=== PATIENT | female | born 1985 | race Two or more races ===

== ENCOUNTER 2017-03-24 17:17 | Emergency (ER) | payer OTHER ==
[~2017-03-24] VITALS: Ht 170.2 cm; Wt 66.8 kg
[2017-03-24] MEDS ORDERED: ZOMI5TAB2 (17:30)
[2017-03-24] MEDS ORDERED: MELA3TAB (17:30)
[2017-03-24] MEDS ORDERED: VITA100T98 (17:30)
[2017-03-24] MEDS ORDERED: FISH1000 (17:30)
[2017-03-24] MEDS ORDERED: D 50CAP (17:30)
[2017-03-24 21:27] VITALS: BP 144/95
== END 2017-03-24 21:28 | disposition home or self-care (01) ==
LOC: M ED 19:11
DX: F41.1 Generalized anxiety disorder (principal); G43.909 Migraine, unspecified, not intractable, without status migrainosus; Z79.899 Other long term (current) drug therapy; Z91.040 Latex allergy status; Z91.011 Allergy to milk products

== ENCOUNTER → 2017-04-14 | Outpatient (CLI) | payer OTHER ==
[~2017-04-14] MED LIST: ATIV1TAB10 PO; D 50CAP; DULO30CA PO; FISH1000; FLON1SPR; IBUP1TAB6 PO; MELA3CAP2 PO; MELA3TAB; METHACHOLINE KIT (J7674) INH ONE; NICO2GUM62 PO; VITA100T98; ZOMI5TAB2; ZOMI5TAB2 PO
--- NOTE | 2017-04-14 11:10 | PFTRPT ---
Tech: Paxton KINCAID RRT Age: 31 Sex: Female Race: <Unspecified> Height: 67.00 Inches Weight: 150.00 Lbs BSA: 1.79 Diagnosis: R05 METHACHOLINE CHALLENGE REPORT: ORDERING PROVIDER: KAT Bliss DATE OF SERVICE: 04/14/17 INTERPRETATION: The study was of excellent technical quality. Under protocol, methacholine was administered. At a dose of 0.25 mg (1.375 CDUs), a 24% decline in the FEV1 was noted. The PC20 of 0.05 is significant. Flow rates returned to baseline post bronchodilator administration. IMPRESSION: Positive methacholine challenge study. MTDD
== END ==
LOC: M CARPUL 10:07
PROVIDERS: ATTEND Nurse Practitioner Adult Health
DX: R05 Cough (principal)

== ENCOUNTER 2017-04-23 13:09 | Inpatient (IN) | payer OTHER ==
[~2017-04-23] VITALS: Ht 170.2 cm; Wt 66.6 kg
[~2017-04-23 13:09] MED LIST changes: -ATIV1TAB10 PO; -DULO30CA PO; -FLON1SPR; -IBUP1TAB6 PO; -MELA3CAP2 PO; -METHACHOLINE KIT (J7674) INH ONE; -NICO2GUM62 PO; -ZOMI5TAB2 PO
[2017-04-23 14:21] LABS: MEAN CORPUSCULAR HEMOGLOBIN 30.2 pg (27.0-33.0); MEAN CORPUSCULAR HGB CONC 33.7 g/dl (32.0-36.5); MEAN CORPUSCULAR VOLUME 89.5 fl (80.0-96.0); RED CELL DISTRIBUTION WIDTH 12.4 % (11.5-14.5); WHITE BLOOD COUNT 6.9 K/mm3 (4.0-10.0)
[2017-04-23 14:41] LABS: CONTROL LINE HCG INT CTR LINE PRESENT
[2017-04-23 14:49] LABS: METHADONE URINE NEGATIVE (NEGATIVE)
[2017-04-23 14:57] LABS: ALBUMIN 4.3 GM/DL (3.2-5.2); ALKALINE PHOSPHATASE 60 U/L (45-117); ALT/SGPT 23 U/L (12-78); ANION GAP 7 MEQ/L (8-16); AST/SGOT 22 U/L (15-37); BILIRUBIN,DIRECT 0.1 MG/DL (0.0-0.2); BILIRUBIN,TOTAL 0.5 MG/DL (0.2-1.0); BLOOD UREA NITROGEN 7 MG/DL (7-18); CALCIUM LEVEL 9.1 MG/DL (8.5-10.1); CARBON DIOXIDE LEVEL 26 MEQ/L (21-32); CHLORIDE LEVEL 105 MEQ/L (98-107); CREATININE FOR GFR 0.62 MG/DL (0.55-1.02); GLOMERULAR FILTRATION RATE > 60.0 (>60); GLUCOSE, FASTING 85 MG/DL (70-105); POTASSIUM SERUM 4.5 MEQ/L (3.5-5.1); SODIUM LEVEL 138 MEQ/L (136-145); TOTAL PROTEIN 7.6 GM/DL (6.4-8.2)
[2017-04-23] MEDS ORDERED: IBUPROFEN 600 MG TAB PO ONE (15:45)
[2017-04-23] MEDS ORDERED: MOM 30ML SUSPENSION UDC PO PRN (16:30)
[2017-04-23] MEDS ORDERED: ACETAMINOPHEN TAB 650MG DOSE (2X325MG) PO PRN (16:30)
[2017-04-23] MEDS ORDERED: MAALOX 30 ML SUSP *UDC PO PRN (16:30)
[2017-04-23] MEDS ORDERED: HALOPERIDOL 5 MG TAB PO PRN (16:30)
[2017-04-23] MEDS ORDERED: traZODone 50 MG TAB PO PRN (16:30)
[2017-04-23] MEDS ORDERED: MELA3CAP2 PO (16:37)
[2017-04-23] MEDS ORDERED: IBUP1TAB6 PO (16:37)
[2017-04-23] MEDS ORDERED: ZOMI5TAB2 PO (16:37)
[2017-04-23] MEDS ORDERED: FLON1SPR (16:37)
[2017-04-23 18:57] VITALS: BP 150/104
[2017-04-23 19:28] VITALS: BP 137/97
[2017-04-23] MEDS: risperiDONE 1 MG TAB PO SCH (19:48)
[2017-04-23] MEDS: LORazepam 1 MG TAB PO PRN (19:49)
[2017-04-24 06:33] VITALS: BP 135/98
[2017-04-24] MEDS: risperiDONE 1 MG TAB PO SCH ×3 (09:00→21:00)
[2017-04-24] MEDS: LORazepam 1 MG TAB PO PRN (10:23)
[2017-04-24] MEDS: IBUPROFEN 600 MG TAB PO PRN (11:48)
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
[2017-04-24 18:00] VITALS: BP 115/72
--- NOTE | 2017-04-25 01:15 | HPE ---
DATE OF ADMISSION: 04/23/2017 HISTORY OF PRESENT ILLNESS: Please refer to psychiatric history and evaluation for further details on this admission. This examination and history is performed for medical issues, which may need treatment, followup or consult on this 31-year-old female. ALLERGIES: LACTOSE and LATEX. PRIMARY CARE PROVIDER: Francois Kaiser. SOCIAL HISTORY: She is single. She is a soldier currently stationed at [employer]. Ethyl alcohol (EtOH) once or twice a month. Smokes 1-4 cigarettes per day. Recreational drug use none. PAST MEDICAL HISTORY: 1. Asthma. 2. Traumatic brain injury (TBI). 3. Concussion times two. 4. Chronic right hip pain for which she will continue seeing physical therapy (PT) as outpatient. PAST SURGICAL HISTORY: Hernia repair. HOME MEDICATIONS: - Flonase one spray each morning - ibuprofen 600 mg by mouth every 6 hours as needed for pain - Zomig ZMT 5 mg by mouth as needed for migraine - melatonin 3 mg by mouth nightly as needed for sleep - vitamin B12 one by mouth daily REVIEW OF SYSTEMS: Has a history of headaches, none currently. No fever. No chills. No blurred or double vision. No tinnitus. No hoarseness. No difficulty swallowing. No lightheadedness. No vertigo. Breasts: No masses. Cardiovascular: No complaints of chest pain, shortness of breath, palpitations or edema. Respiratory: No chronic cough, no sputum production. No hemoptysis. No orthopnea. No wheeze. Gastrointestinal (GI): No nausea, vomiting or diarrhea. No hematochezia. No melena. No complaints of abdominal pain. Genitourinary (): No hematuria, dysuria or frequency. Musculoskeletal: No joint redness or swelling. Endocrine: No polyuria, polydipsia or polyphagia. Hematological: No history of anemia. Neurological: No history of seizures. Psychological: See psychiatric history of present illness (HPI). PHYSICAL EXAMINATION: 31-year-old cooperative female in no acute distress. Vital signs are stable. Height 61 inches, weight 67 kg, body mass index (BMI) 23.1. Blood pressure 135/88, pulse 93, respirations 18, temperature 98.4. Patient is alert and oriented times three. Pupils equal and react to light. Extraocular muscles intact. Cornea and sclerae clear. Conjunctivae were normal. No facial asymmetry. Pharynx, tongue and gums pink and moist. Tongue is midline. Neck is supple without lymphadenopathy. No thyromegaly, no goiter. Carotids 2+ without bruit. Chest clear to auscultation without wheeze or retraction. Heart is regular. Abdomen is benign. Bowel sounds positive. Genitourinary/rectal: Not done. Extremities show equal strength, full range of motion. No cyanosis, clubbing or edema. Peripheral pulses equal and palpable bilaterally. Skin is warm and dry. IMPRESSION/PLAN: 1. Asthma. Clinically stable. 2. Traumatic brain injury (TBI), concussion times two. Continue Zomig as needed for migraine. Ibuprofen as needed for migraine or joint pain 600 by mouth every 6 hours as needed for pain. 3. Chronic right hip pain. Keep right leg elevated. Monitor kidney function.
[2017-04-25 06:38] VITALS: BP 113/69
[2017-04-25] MEDS: IBUPROFEN 600 MG TAB PO PRN (07:29)
[2017-04-25] MEDS: risperiDONE 1 MG TAB PO SCH (08:49)
[2017-04-25] MEDS: risperiDONE 0.25 MG TAB PO SCH ×2 (16:00→21:32)
[2017-04-25] MEDS: NICOTINE POLACRILEX 2 MG GUM PO PRN ×2 (16:17→18:35)
--- NOTE | 2017-04-25 16:19 | IPN ---
DATE: 04/25/2017 VITAL SIGNS: Temperature 100.3, pulse 59, respirations 16, blood pressure 113/69. CURRENT MEDICATIONS: - Risperdal 1 mg three times a day - patient refusing - Ativan 1 mg every 4 hours as needed HISTORY OF PRESENT ILLNESS: Patient reports mild to moderate depression and anxiety. She is upset about being confined. She has been refusing the Risperdal. She does not want a medication that is too powerful or would interfere with her functioning. She still has racing thoughts. She is encouraged to contemplate taking a trial on the Risperdal. The dose will be reduced to minimize risk of side effects. Patient's temperature was elevated this morning. This will be monitored. She states her appetite is good. Patient reports sleeping well at night. Patient smokes a half pack of cigarettes per day. She would like the Nicorette gum. MENTAL STATUS EXAMINATION: Patient is alert, oriented and cooperative, with racing thoughts. Patient reports some dysphoria, mild depression, moderate anxiety. She denies current suicidal ideation. She denies hearing voices. She still reports some paranoid ideations, but this seems less prominent. DIAGNOSIS: 1. Bipolar disorder mixed with paranoia. 2. Rule out panic anxiety disorder. PLAN: Reduce Risperdal to minimize risk of any side effects, down to 0.25 mg three times a day. Patient is encouraged to give it a decent trial. She will consider this. [facility].
[2017-04-25 18:00] VITALS: BP 122/71
--- NOTE | 2017-04-25 21:34 | ECGEPIP ---
Stationary ECG Study [facility] Test Date: 2017-04-25 Pat Name: DENICE CHAMBERS Department: Room: [place] [address] Gender: F Business Line Manager: MIRIAN : 1985 Requested By: Linh Matos [facility] Order Number: [id number] Reading MD: Chris Trivedi Measurements Intervals [place] Rate: 78 P: 51 CO: 151 QRS: 58 QRSD: 83 T: 37 QT: 382 QTc: 437 Interpretive Statements SINUS RHYTHM LEFT ATRIAL ENLARGEMENT PROBABLE LVH MARGINAL T WAVE ABNORMALITIES NO PRIOR TRACING Electronically Signed On 04-25-2017 21:34:07 EDT by Chris Trivedi
[2017-04-26 06:00] VITALS: BP 118/73
[2017-04-26] MEDS: risperiDONE 0.25 MG TAB PO SCH ×3 (08:44→22:18)
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
[2017-04-26] MEDS ORDERED: risperiDONE 1 MG TAB PO PRN (12:15)
[2017-04-26] MEDS: NICOTINE POLACRILEX 2 MG GUM PO PRN (13:33)
[2017-04-26] MEDS: LORazepam 0.5 MG TAB PO PRN (15:55)
[2017-04-26 18:00] VITALS: BP 133/80
[2017-04-27 06:43] VITALS: BP 130/58
[2017-04-27] MEDS: risperiDONE 0.25 MG TAB PO SCH (08:34)
[2017-04-27] MEDS: NICOTINE POLACRILEX 2 MG GUM PO PRN (08:35)
[2017-04-27] MEDS: IBUPROFEN 600 MG TAB PO PRN (10:11)
[2017-04-27] MEDS: LORazepam 0.5 MG TAB PO PRN (10:12)
[2017-04-27] MEDS ORDERED: ATIV1TAB10 PO (10:57)
[2017-04-27] MEDS ORDERED: DULO30CA PO (10:57)
[2017-04-27] MEDS ORDERED: NICO2GUM62 PO (10:57)
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
== END 2017-04-27 13:00 | disposition home or self-care (01) | DRG 880 ==
LOC: M ED 13:09 → M ED INP 16:30 → MERGE 16:30 → M PSY 17:45
PROVIDERS: ADMIT Psychiatry & Neurology Psychiatry; ATTEND Psychiatry & Neurology Psychiatry
DX: F41.1 Generalized anxiety disorder (principal); F32.2 Major depressive disorder, single episode, severe without psychotic features; F17.210 Nicotine dependence, cigarettes, uncomplicated; G47.00 Insomnia, unspecified; G43.909 Migraine, unspecified, not intractable, without status migrainosus; Z79.899 Other long term (current) drug therapy; Z91.040 Latex allergy status; E73.9 Lactose intolerance, unspecified; J45.909 Unspecified asthma, uncomplicated; M25.551 Pain in right hip

== ENCOUNTER 2017-08-18 05:56 | Inpatient (IN) | payer OTHER ==
[~2017-08-18] VITALS: Ht 170.2 cm; Wt 63.0 kg
[~2017-08-18 05:56] MED LIST changes: +ATIV1TAB10 PO; +DULO30CA PO; +FLON1SPR; +IBUP1TAB6 PO; +MELA3CAP2 PO; +NICO2GUM62 PO; +ZOMI5TAB2 PO
[2017-08-18] MEDS ORDERED: ADV250INH INH (06:06)
[2017-08-18] MEDS ORDERED: AMIT50TA PO (06:06)
[2017-08-18 08:57] VITALS: BP 124/90
[2017-08-18] MEDS: ADVAIR HFA 115/21MCG INHALER INH SCH ×2 (09:00→21:00)
[2017-08-18] MEDS: FLUTICASONE PROP 0.05% NASAL SPRAY 16 GM (FLONASE) SCH ×2 (09:00→21:00)
--- NOTE | 2017-08-18 09:13 | HPEPDOC ---
[facility] Medical History & Physical Date of Admission Aug 18, 2017 History and Physical PCP: [facility] ATTENDING: Dr. Alf Martin HPI: 32yoF transferred from [facility] admitted to [facility] for unspecified depressive disorder, being medically examined today. No acute medical complaints today. Patient is very agitated regarding her admission at this time. Patient states she has chronic migraine headaches and chronic pain. She is following with neurology, physical therapy is pending for right hip pain. Denies any fevers, chills, weakness, fatigue, ROGERS, CP, SOB, cough, palpitations, abdominal pain, N/V/D or changes in bowel or bladder habits. PMHx: Allergic rhinitis Chronic migraine headache NCN Dr Corado Chronic neck pain Chronic right hip pain Chronic pain Asthma H/O TBI, concussion x 2. MRI brain NCN. MRI cervical spine NCN PTSD H/O SI PSHX: Hernia repair 1989 SOCHX: Resides in: [place] Marital Status: Single Kids: None Employment: Active duty Tobacco use: Denies ETOH: Denies Illicit Drugs: Denies IV Drug Use: Denies Tattoos done unprofessionally: Denies FAMHX: Mother: Alive, colon cancer Father: , leukemia Siblings: One sister Alive, alcohol use Children: None ROS: As noted in HPI, otherwise 11pt ROS of systems reviewed and remarkable only for LMP approximately 3 weeks ago per patient. PE: GEN: 32 yo F, appears stated age. Well-nourished, well developed. No acute distress. Alert and oriented x 3. Patient is agitated with rapid speech. HEENT: Normocephalic, atraumatic. Pupils are equal, round, and reactive to light. Extraocular movements are intact. No nystagmus appreciated. Sclera are nonicteric. Conjunctiva without injection. Nose midline. Nasal turbinates without bogginess. EACs both patent BL. TMs both visualized and sarmiento with good cone of light, no bulging or erythema. No facial asymmetry. Moist mucous membranes. Dentition fair. Pharynx pink and moist, no cobblestoning. Neck supple , trachea midline. No lymphadenopathy or thyromegaly appreciated. CHEST: Regular rate and rhythm, +S1, +S2 LUNGS: Clear to auscultation bilaterally. No wheezes, rales, or rhonchi. Breathing appears symmetric and easy. Patient is speaking in full sentences. No accessory muscle use. ABD: Round, soft, non-tender, non-distended. +Bowel sounds throughout. No rebound or guarding. No costovertebral angle tenderness. EXT: Pulses 2+ bilaterally dorsalis pedis and radial. No lower extremity edema appreciated. SKIN: [place], dry, warm. Capillary refill <2sec. No rashes. NEURO: Alert and oriented x 3. Cranial nerves III-XII are intact. No focal deficits appreciated. EKG: Pending Labs [facility] WBC 7.5 Hgb 12.7 HCT 37.4 Plt 279 Na 141 K 3.5 Cl 102 Gluc 93 BUN 8 SCr 0.6 AST 17 ALT 11 CK 74 Mag 1.9 Lipase 24 Troponin 0.01 UA unremarkable Toxicology unremarkable HCG neg. CXR [facility] NAD A&P: 32yoF admitted to [facility] for unspecified depressive disorder 1. Psych. Plan per Psychiatry. Obtain baseline EKG to assure the safety of psychiatric medications as they can prolong the QT interval. 2. Chronic migraine headache. Continue amitriptyline 50 mg by mouth daily as per neurology for headaches. Continue Zomig-ZMT 5 mg as needed at onset of headache. Request copy of MRI brain from neurology. Request copy of last office note from neurology. 3. Chronic pain/chronic right hip pain/chronic neck pain. Request copy of MRI cervical spine from neurology. Physical therapy is pending as per PCP for chronic right hip pain. Discussed pain management opinion regarding chronic pain however the patient adamantly declined stating "I will refuse anything unnecessary". Patient states she uses ibuprofen for her pain, continue ibuprofen 400 mg every 8 hours as needed. 4. Follow up with PCP on discharge. 5. Allergic rhinitis. Continue Flonase daily. 6. Asthma. Continue Advair 250/50 one puff twice a day. Albuterol if needed. 7. Staff member Melva LOVE present throughout exam. Vital Signs Vital Signs Date Time Temp Pulse Resp B/P (MAP) Pulse Ox O2 Delivery O2 Flow Rate FiO2 08/18/17 08:39 99.8 94 20 154/94 (114) 97 08/18/17 06:27 Room Air Home Medications Scheduled (Flonase Allergy Relief) 50 Mcg/Act Spr, 1 SPRAY NA DAILY Salmeterol/Fluticasone (Advair Diskus 250-50 Mcg/Dose) 14 Puff/Inhaler Aerp, 1 PUFF INH BID Scheduled PRN Zolmitriptan (Zomig Zmt) 5 Mg Tab, 5 MG PO for MIGRAINE Miscellaneous Medications Amitriptyline HCl (Amitriptyline HCl) 50 Mg Tab, 50 MG PO Riboflavin (Vitamin B-2) 100 Mg Tab Allergies Coded Allergies: Pineapple (Verified Allergy, Intermediate, 08/18/17) Lactose (Verified Allergy, Mild, CONSTIPATION, 08/18/17) Latex (Verified Allergy, Mild, RASH, 08/18/17) Ileana Ghosh Aug 18, 2017 09:13
[2017-08-18] MEDS ORDERED: ALBUTEROL 90 MCG/ACT 8GM HFA INHALER INH PRN (09:15)
[2017-08-18] MEDS ORDERED: traZODone 50 MG TAB PO PRN (10:45)
[2017-08-18] MEDS ORDERED: MAALOX 30 ML SUSP *UDC PO PRN (10:45)
[2017-08-18] MEDS: QUEtiapine FUMARATE 12.5 MG HALF-TAB PO SCH (15:48)
[2017-08-18] MEDS: IBUPROFEN 400 MG TAB PO PRN (15:49)
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
[2017-08-18 18:00] VITALS: BP 153/97
[2017-08-18] MEDS ORDERED: QUEtiapine FUMARATE 50 MG TAB PO SCH (21:00)
[2017-08-19 06:33] VITALS: BP 110/65
[2017-08-19] MEDS: QUEtiapine FUMARATE 12.5 MG HALF-TAB PO SCH ×2 (09:00→16:00)
[2017-08-19] MEDS: FLUTICASONE PROP 0.05% NASAL SPRAY 16 GM (FLONASE) SCH ×2 (13:02→20:48)
[2017-08-19] MEDS: ADVAIR HFA 115/21MCG INHALER INH SCH ×2 (13:02→20:48)
--- NOTE | 2017-08-19 20:02 | ECGEPIP ---
Stationary ECG Study [facility] Test Date: 2017-08-18 Pat Name: DENICE CHAMBERS Department: Room: [place] [address] Gender: F Relay Telegrapher: MILIND : 1985 Requested By: Ileana Ghosh Order Number: [id number] Reading MD: Megha Walton Measurements Intervals [place] Rate: 68 P: 25 ND: 144 QRS: 51 QRSD: 87 T: 24 QT: 391 QTc: 418 Interpretive Statements SINUS RHYTHM WITH MARKED SINUS ARRHYTHMIA SIMILAR 02/21/16 Electronically Signed On 08-19-2017 20:02:47 EST by Megha Walton
[2017-08-19] MEDS: OLANZapine 10 MG TAB PO SCH (20:48)
--- NOTE | 2017-08-20 02:25 | MHIPN ---
DATE OF SERVICE: 08/19/2017 HISTORY: 32-year-old female with history of depression and posttraumatic stress disorder (PTSD) admitted to our unit after it was reported that she called a hotline reporting suicidal thoughts. MEDICATIONS: Patient has not been willing to take any psychotropic medications, is prescribed Seroquel 12.5 mg by mouth twice a day plus 50 mg by mouth nightly. SUBJECTIVE: "I've been forced to come here." OBJECTIVE: No major changes from yesterday. Patient continues projecting blame and she is at times irritable. She has significant cognitive distortion/paranoid thinking about how and other people of her surroundings are mistreating her. MENTAL STATUS EXAMINATION: Patient is dressed in [facility]. Patient is partially cooperative. Speech is slow and monotone. Mood is anxious. Affect is irritable. Patient has tendency to project blame with paranoid thinking. No auditory or visual hallucinations. Memory, attention and concentration are fair. Insight and judgment is poor. ASSESSMENT: 1. Depression. 2. Suicidal ideation. PLAN: 1. Continue offering psychotropic medication. 2. Seroquel 12.5 mg by mouth twice a day. 3. Zyprexa 10 mg by mouth nightly. 4. Continue close observation.
[2017-08-20 06:29] VITALS: BP 118/78
[2017-08-20] MEDS: QUEtiapine FUMARATE 12.5 MG HALF-TAB PO SCH ×2 (09:00→16:00)
[2017-08-20] MEDS: ADVAIR HFA 115/21MCG INHALER INH SCH ×2 (10:17→21:53)
[2017-08-20] MEDS: FLUTICASONE PROP 0.05% NASAL SPRAY 16 GM (FLONASE) SCH ×2 (10:17→21:00)
[2017-08-20] MEDS: ZOLMitriptan TABLET 2.5MG PO PRN (11:20)
[2017-08-20] MEDS: IBUPROFEN 400 MG TAB PO PRN (11:20)
[2017-08-20] MEDS ORDERED: diphenhydrAMINE 25 MG CAP PO PRN ×2 (16:45→18:45)
[2017-08-20] MEDS: LORazepam 0.5 MG TAB PO PRN (17:01)
[2017-08-20 18:00] VITALS: BP 118/72
[2017-08-20] MEDS: OLANZapine 10 MG TAB PO SCH (21:00)
--- NOTE | 2017-08-21 02:34 | MHIPN ---
DATE OF SERVICE: 08/20/2017 HISTORY: 32-year-old female with history of depression and posttraumatic stress disorder (PTSD) admitted to our unit after it was reported she called a hotline reporting suicidal thoughts. MEDICATIONS: Patient is not willing to take psychotropic medication at this time. She has prescribed Seroquel 12.5 mg by mouth twice a day and Zyprexa 10 mg by mouth nightly. SUBJECTIVE: "I want to go home as soon as possible." OBJECTIVE: Patient is not showing signs or symptoms of major depression. There is no psychomotor retardartion. Patient continues having paranoid thoughts and projecting blame to personnel and is talking about filling out paperwork when she is discharged. MENTAL STATUS EXAMINATION: Patient is dressed in [facility]. Patient is partially cooperative. Speech is normal in rate, volume and articulation. Mood is anxious. Affect is somewhat restricted. Patient continues to project blame and express how her chain of command are "making things up." There is no evidence of auditory or visual hallucinations. Memory, attention and concentration are fair. Insight is poor. Judgment is fair. ASSESSMENT: 1. Depression. 2. Suicidal ideation. 3. Paranoid thinking. PLAN: 1. Continue offering psychotropic medication. 2. Continue Seroquel 12.5 mg by mouth twice a day. 3. Continue Zyprexa 10 mg by mouth nightly.
[2017-08-21 06:39] VITALS: BP 100/54
[2017-08-21] MEDS: QUEtiapine FUMARATE 12.5 MG HALF-TAB PO SCH ×2 (09:00→15:43)
[2017-08-21] MEDS: FLUTICASONE PROP 0.05% NASAL SPRAY 16 GM (FLONASE) SCH ×2 (09:10→21:00)
[2017-08-21] MEDS: ADVAIR HFA 115/21MCG INHALER INH SCH ×2 (09:10→21:55)
[2017-08-21 18:00] VITALS: BP 128/72
[2017-08-21] MEDS: IBUPROFEN 400 MG TAB PO PRN (19:08)
[2017-08-21] MEDS: OLANZapine 10 MG TAB PO SCH (21:00)
[2017-08-21] MEDS: LORazepam 0.5 MG TAB PO PRN (22:17)
[2017-08-22 06:43] VITALS: BP 126/71
[2017-08-22] MEDS: QUEtiapine FUMARATE 12.5 MG HALF-TAB PO SCH ×2 (09:00→16:00)
[2017-08-22] MEDS: ADVAIR HFA 115/21MCG INHALER INH SCH ×2 (09:11→21:22)
[2017-08-22] MEDS: FLUTICASONE PROP 0.05% NASAL SPRAY 16 GM (FLONASE) SCH ×2 (09:11→21:00)
[2017-08-22] MEDS: MOM 30ML SUSPENSION UDC PO PRN (13:28)
[2017-08-22] MEDS: IBUPROFEN 400 MG TAB PO PRN (16:19)
[2017-08-22] MEDS: ZOLMitriptan TABLET 2.5MG PO PRN (16:20)
[2017-08-22 18:00] VITALS: BP 136/95
--- NOTE | 2017-08-22 20:32 | MHIPN ---
DATE: 08/22/2017 HISTORY: 32-year-old female with history of depression and posttraumatic stress disorder (PTSD) admitted to our unit after it was reported that she called the hotline complaining of suicidal thoughts. MEDICATIONS: Patient is not willing to take psychotropic medications at this time. SUBJECTIVE: "I'm doing fine." OBJECTIVE: Patient is doing well, is interacting well with other patients and staff. There is no acting out behavior. Patient is denying suicidal thoughts. There is no evidence of a major depression. Patient does not have psychomotor retardation. Patient continues to project blame against staff at [facility]. MENTAL STATUS EXAMINATION: Patient is dressed in [facility]. Patient is partially cooperative. Her speech is normal in rate, volume, and articulation. Mood is somewhat anxious. Affect is somewhat restricted. Patient continues to project blame and express how she feels about her chain of command, has tendency to project blame, and tendency towards paranoia. No hallucinations. Memory, attention, and concentration are fair. Insight is poor. Judgment is fair. ASSESSMENT: 1. Depression. 2. Suicidal ideation. 3. Paranoid thinking. PLAN: 1. Continue offering psychotropic medication. 2. Seroquel 12.5 mg by mouth twice a day. 3. Zyprexa 10 mg by mouth nightly.
[2017-08-22] MEDS: OLANZapine 10 MG TAB PO SCH (21:00)
[2017-08-23 06:37] VITALS: BP 132/79
[2017-08-23] MEDS: QUEtiapine FUMARATE 12.5 MG HALF-TAB PO SCH ×2 (09:00→15:59)
[2017-08-23] MEDS: FLUTICASONE PROP 0.05% NASAL SPRAY 16 GM (FLONASE) SCH ×2 (09:22→21:00)
[2017-08-23] MEDS: ADVAIR HFA 115/21MCG INHALER INH SCH ×2 (09:22→21:26)
[2017-08-23] MEDS: LORazepam 0.5 MG TAB PO PRN (09:23)
--- NOTE | 2017-08-23 16:35 | MHIPN ---
DATE: 08/23/2017 HISTORY: 32-year-old female with history of depression and posttraumatic stress disorder (PTSD) admitted to our unit after it was reported that she called the hotline complaining of suicidal thoughts. MEDICATIONS: Patient is not willing to take psychotropic medications at this time. SUBJECTIVE: "I am doing very good." OBJECTIVE: No major changes. Patient is interacting well with other patients and staff, is calm and cooperative, intervenes in therapeutic activities, continues to refuse psychotropic medication, continues to project blame against staff at [place] [facility]. MENTAL STATUS EXAMINATION: Patient is dressed in [facility]. Patient is cooperative. Her speech is normal in rate, volume, and articulation. Mood is somewhat anxious. Affect is somewhat restricted. Patient continues to project blame and express her feelings against the chain of command and other personnel at [facility]. No hallucinations. Has tendency towards paranoia. Memory, attention, and concentration are fair. Insight is poor. Judgment is fair. ASSESSMENT: 1. Depression. 2. Suicidal ideation. 3. Paranoid thinking. PLAN: 1. Continue offering psychotropic medication.
[2017-08-23 18:00] VITALS: BP 130/80
[2017-08-23] MEDS: OLANZapine 10 MG TAB PO SCH (21:00)
[2017-08-23] MEDS: IBUPROFEN 400 MG TAB PO PRN (21:27)
[2017-08-23] MEDS: MOM 30ML SUSPENSION UDC PO PRN (21:43)
[2017-08-24 06:45] VITALS: BP 138/61
[2017-08-24] MEDS: QUEtiapine FUMARATE 12.5 MG HALF-TAB PO SCH (09:00)
[2017-08-24] MEDS: ADVAIR HFA 115/21MCG INHALER INH SCH (09:50)
[2017-08-24] MEDS: FLUTICASONE PROP 0.05% NASAL SPRAY 16 GM (FLONASE) SCH (09:50)
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
== END 2017-08-24 14:55 | disposition home or self-care (01) | DRG 882 ==
LOC: M ED 05:56 → M ED INP 07:10 → M PSY 08:43
PROVIDERS: ADMIT Psychiatry & Neurology Psychiatry; ATTEND Psychiatry & Neurology Psychiatry
DX: F43.22 Adjustment disorder with anxiety (principal); F60.0 Paranoid personality disorder; J45.909 Unspecified asthma, uncomplicated; G89.29 Other chronic pain; M54.2 Cervicalgia; G43.909 Migraine, unspecified, not intractable, without status migrainosus; Z91.040 Latex allergy status; Z91.018 Allergy to other foods; E73.9 Lactose intolerance, unspecified